=== PATIENT | female | born 1975 | race Caucasian/White ===

== ENCOUNTER 2020-07-08 12:52 | Outpatient (CLI) | payer OTHER, SELFPAY ==
--- NOTE | 2020-07-08 15:00 | NEURO_ITS ---
Impression: # Complains of paresthesia of both hands. # Mild right Carpal Tunnel Syndrome. # No ulnar neuropathy. # Normal needle/EMG exam. # Clinical correlation recommended. Nerve Conduction Studies Anti Sensory Summary Table Stim Site NR Peak (ms) P-T Amp (?V) Site1 Site2 Delta-P (ms) Dist (cm) Edin (m/s) Left Median Anti Sensory (2-3nd Digit) Wrist 2.5 24.5 Wrist 2-3nd Digit 2.5 14.0 56 Wrist 2.6 40.8 Wrist 2-3nd Digit 2.5 14.0 56 Right Median Anti Sensory (2-3nd Digit) Wrist 3.2 27.3 Wrist 2-3nd Digit 3.2 14.0 44 Wrist 3.1 24.4 Wrist 2-3nd Digit 3.2 14.0 44 Left Radial Anti Sensory (Base 1st Digit) Wrist 2.3 18.2 Wrist Base 1st Digit 2.3 0.0 Right Radial Anti Sensory (Base 1st Digit) Wrist 2.1 23.0 Wrist Base 1st Digit 2.1 0.0 Left Ulnar Anti Sensory (5th Digit) Wrist 2.3 51.2 Wrist 5th Digit 2.3 14.0 61 Right Ulnar Anti Sensory (5th Digit) Wrist 2.2 14.8 Wrist 5th Digit 2.2 14.0 64 Motor Summary Table Stim Site NR Onset (ms) O-P Amp (mV) Site1 Site2 Delta-0 (ms) Dist (cm) Edin (m/s) Left Median Motor (Abd Poll Brev) Wrist 2.7 2.7 Elbow Wrist 4.6 28.0 61 Elbow 7.3 2.7 Right Median Motor (Abd Poll Brev) Wrist 3.4 1.9 Elbow Wrist 4.6 27.0 59 Elbow 8.0 1.6 Left Ulnar Motor (Abd Dig Minimi) Wrist 2.3 6.4 A Elbow Wrist 4.6 28.0 61 A Elbow 6.9 4.8 Right Ulnar Motor (Abd Dig Minimi) Wrist 2.2 7.2 A Elbow Wrist 4.8 29.0 60 A Elbow 7.0 5.2 F Wave Studies NR F-Lat (ms) L-R F-Lat (ms) Left Median (Mrkrs) (Abd Poll Brev) 27.16 1.11 Right Median (Mrkrs) (Abd Poll Brev) 28.27 1.11 Left Ulnar (Mrkrs) (Abd Dig Min) 27.73 0.12 Right Ulnar (Mrkrs) (Abd Dig Min) 27.62 0.12 EMG Side Muscle Nerve Root Ins Act Fibs Amp Dur Recrt Comment Right 1stDorInt Ulnar C8-T1 Nml Nml Nml Nml Nml Right Ext Indicis Radial (Post Int) C7-8 Nml Nml Nml Nml Nml Right Ext Digitorum Radial (Post Int) C7-8 Nml Nml Nml Nml Nml Right BrachioRad Radial C5-6 Nml Nml Nml Nml Nml Right PronatorTeres Median C6-7 Nml Nml Nml Nml Nml Right Abd Poll Brev Median C8-T1 Nml Nml Nml Nml Nml Left 1stDorInt Ulnar C8-T1 Nml Nml Nml Nml Nml Left Ext Indicis Radial (Post Int) C7-8 Nml Nml Nml Nml Nml Left Ext Digitorum Radial (Post Int) C7-8 Nml Nml Nml Nml Nml Left BrachioRad Radial C5-6 Nml Nml Nml Nml Nml Left PronatorTeres Median C6-7 Nml Nml Nml Nml Nml Left Abd Poll Brev Median C8-T1 Nml Nml Nml Nml Nml MTDD
== END 2020-07-08 12:53 | disposition home or self-care (01) ==
PROVIDERS: Visit Provider Physician Assistant Surgical
DX: G56.01 Carpal tunnel syndrome, right upper limb (principal)
CPT/HCPCS: 95886; 95911

== ENCOUNTER 2022-07-01 15:10 | Day surgery (SDC) | payer OTHER, SELFPAY ==
[2022-07-01 14:03] VITALS: BP 148/100; PULSE 110; RESP 19; TEMP 36.6; O2SAT 98
--- NOTE | 2022-07-01 14:46 | ED.GENADULT ---
HPI - General Adult General Chief complaint: Unspecified Stated complaint: food bolus transfer remlap ed History of Present Illness HPI narrative: Patient is a 47-year-old female who presents ER as a transfer from [facility] for evaluation of a esophageal foreign body. Patient has history of esophageal strictures. She has been on the schedule to have esophageal dilation but has not made it in. She was eating some turkey this morning at 9 AM and became lodged. She has been unable to swallow since then. Cannot belch. She has discomfort in her chest and throat. Patient received glucagon without improvement. Related Data Home Medications Medication Instructions Recorded Confirmed amitriptyline 100 mg tablet 100 mg PO QHS 04/07/21 07/01/22 atorvastatin 40 mg tablet 40 mg PO DAILY 04/07/21 07/01/22 buspirone 30 mg tablet 30 mg PO DAILY 04/07/21 07/01/22 insulin glargine 100 unit/mL (3 70 unit subcut QPM 04/07/21 07/01/22 mL) subcutaneous pen (Basaglar KwikPen U-100 Insulin) levothyroxine 50 mcg capsule 50 mcg PO DAILY 04/07/21 07/01/22 liraglutide 0.6 mg/0.1 mL (18 mg/3 See Rx Instructions subcut .COMPLEX 04/07/21 07/01/22 mL) subcutaneous pen injector (Victoza 3-Richard) metoprolol succinate 50 mg 50 mg PO BID 04/07/21 07/01/22 tablet,extended release 24 hr sertraline 100 mg tablet (Zoloft) 100 mg PO DAILY 04/07/21 07/01/22 albuterol sulfate 90 mcg/actuation 2 inh inhalation DAILY 05/20/21 07/01/22 aerosol inhaler (Ventolin HFA) clonazepam 1 mg tablet 0.5 mg PO DAILY 05/20/21 07/01/22 ipratropium bromide 17 1 puff inhalation DAILY 05/20/21 07/01/22 mcg/actuation HFA aerosol inhaler (Atrovent HFA) Ozempic 1 mg BYMOUTH WEEKLY 03/29/22 07/01/22 losartan 100 1 tablet PO DAILY 03/29/22 07/01/22 mg-hydrochlorothiazide 25 mg tablet Allergies Allergy/AdvReac Type Severity Reaction Status Date / Time No Known Allergies Allergy Verified 07/01/22 15:15 Review of Systems Review of Systems: All systems reviewed & are unremarkable except as noted in HPI and below Constitutional: Constitutional: Denies chills and Denies fever(s) ENT: Reports dysphagia and Denies sore throat Cardiovascular: Cardiovascular: Denies chest pain and Denies radiating jaw, neck or arm pain Respiratory: Respiratory: Denies cough, Denies dyspnea and Denies wheezing Gastrointestinal: Gastrointestinal: Denies abdominal pain and Reports vomiting PMFSH Past Medical History Medical History (Updated 07/01/22 @ 15:43 by Isauro Chavez MD) Anxiety Asthma Diabetes insulin pump GERD (gastroesophageal reflux disease) Obese Thyroid disorder hypo Surgical History Surgical History (Updated 07/01/22 @ 18:34 by Mc Roberson MD) History of esophagogastroduodenoscopy (EGD) Family History Family History Father Alcohol abuse Diabetes mellitus Mother Cancer Depression Hypertension Sibling Depression Other Asthma Depression Social History Social History Smoking packs per day: 1 Smoking cigarettes per day: 20.0 Years smoked: 20 Smoking pack-years: 20.00 Smoking status: Former smoker Tobacco type: cigarettes Alcohol intake: never Substance use: never Substance use type: does not use Additional living arrangements comments: mom lives next door Gender identity (if verbalized by the patient): Female Spiritual care concerns: No Exam Narrative: GENERAL: Uncomfortable-appearing, well-nourished, and in no acute distress. HEAD: Normocephalic, atraumatic. EYES: PERRL and EOMI. ENT: Mucous membranes moist. CHEST: Clear to auscultation. No respiratory distress. HEART: Regular rate and rhythm. Normal peripheral pulses. ABDOMEN: Soft, nontender, nondistended. EXTREMITIES: Normal range of motion. No edema. SKIN: Warm, dry, no rash. NEURO: Alert and oriented
--- NOTE | 2022-07-01 15:31 | PM.HPGS ---
History of Present Illness History of Present Illness Consent: Risks, benefits, and alternatives have been discussed and questions answered. Patient agrees to proceed with procedure. Chief complaint: food bolus transfer gateway ed Narrative: Lili Bass is a 47 year old female Who presented to the emergency room because of inability to swallow. She was eating some turkey this morning when she relapsed after a few bites that would not go down. Has been unable to drink even water. She has been expect rating thick saliva. She did vomit a few times brought up some particles of food but is still unable to swallow. Feels as though there is a big air bubble in the middle of her chest. She has been having dysphagia for quite a while. She had seen a nurse practitioner in our office a while back and was scheduled for endoscopy with possible dilatation but she canceled several times because she was also supposed to be scheduled for colonoscopy and she was afraid of that procedure. Consequently, she has never had an EGD or esophageal dilatation. She does have a history of acid reflux. She is not currently on medicine for that. She is a diabetic, insulin dependent. Review of Systems Review of Systems: All systems reviewed & are unremarkable except as noted in HPI and below PMFSH Past Medical History Medical History Obese Family History Family History Father Alcohol abuse Diabetes mellitus Mother Cancer Depression Hypertension Sibling Depression Other Asthma Depression Social History Social History Smoking packs per day: 1 Smoking cigarettes per day: 20.0 Years smoked: 20 Smoking pack-years: 20.00 Smoking status: Former smoker Tobacco type: cigarettes Alcohol intake: never Substance use: never Substance use type: does not use Additional living arrangements comments: mom lives next door Gender identity (if verbalized by the patient): Female Spiritual care concerns: No Meds Home Medications and Allergies Home Medications Medication Instructions Recorded Confirmed Type amitriptyline 100 mg tablet 100 mg PO QHS 04/07/21 07/01/22 History atorvastatin 40 mg tablet 40 mg PO DAILY 04/07/21 07/01/22 History buspirone 30 mg tablet 30 mg PO DAILY 04/07/21 07/01/22 History insulin glargine 100 unit/mL (3 70 unit subcut QPM 04/07/21 07/01/22 History mL) subcutaneous pen (Basaglar KwikPen U-100 Insulin) levothyroxine 50 mcg capsule 50 mcg PO DAILY 04/07/21 07/01/22 History liraglutide 0.6 mg/0.1 mL (18 mg/3 See Rx Instructions subcut .COMPLEX 04/07/21 07/01/22 History mL) subcutaneous pen injector (Victoza 3-Richard) metoprolol succinate 50 mg 50 mg PO BID 04/07/21 07/01/22 History tablet,extended release 24 hr sertraline 100 mg tablet (Zoloft) 100 mg PO DAILY 04/07/21 07/01/22 History albuterol sulfate 90 mcg/actuation 2 inh inhalation DAILY 05/20/21 07/01/22 History aerosol inhaler (Ventolin HFA) clonazepam 1 mg tablet 0.5 mg PO DAILY 05/20/21 07/01/22 History ipratropium bromide 17 1 puff inhalation DAILY 05/20/21 07/01/22 History mcg/actuation HFA aerosol inhaler (Atrovent HFA) Ozempic 1 mg BYMOUTH WEEKLY 03/29/22 07/01/22 History losartan 100 1 tablet PO DAILY 03/29/22 07/01/22 History mg-hydrochlorothiazide 25 mg tablet Allergies Allergy/AdvReac Type Severity Reaction Status Date / Time No Known Allergies Allergy Verified 07/01/22 15:15 Vital Signs Vital Signs - 24 hr 07/01/22 14:03 Temperature 36.6 C Pulse Rate 110 H Respiratory Rate 19 Blood Pressure 148/100 H Pulse Oximetry 98 Oxygen Delivery Room Air Exam Const: General: alert Orientation/consciousness: patient oriented x3 Resp: Auscultation: clear to auscultation bilaterally Cardio: Rhythm: regular rhythm GI:
--- NOTE | 2022-07-01 15:41 | WPDANESEPPF ---
Anes - Initial Pre Proc Eval Procedure: Operation Date: 07/01/22 15:30 Proposed Procedures p Esophagogastroduodenoscopy EGD - Grey Rodriguez MD Date/Time: 07/01/22 15:41 Surgeon: Grey Rodriguez MD Pre Op Diagnosis: food bolus transfer gateway ed Patient Data Age: 47 Gender: F Height: 1.65 m Weight: 104 kg Last Vital Signs Temp 36.6 C 07/01/22 14:03 Pulse 110 H 07/01/22 14:03 Resp 19 07/01/22 14:03 BP 148/100 H 07/01/22 14:03 Pulse Ox 98 07/01/22 14:03 O2 Del Method Room Air 07/01/22 14:03 Allergies Allergy/AdvReac Type Severity Reaction Status Date / Time No Known Allergies Allergy Verified 07/01/22 15:15 Home Medications Medication Instructions Recorded Confirmed Type amitriptyline 100 mg tablet 100 mg PO QHS 04/07/21 07/01/22 History atorvastatin 40 mg tablet 40 mg PO DAILY 04/07/21 07/01/22 History buspirone 30 mg tablet 30 mg PO DAILY 04/07/21 07/01/22 History insulin glargine 100 unit/mL (3 70 unit subcut QPM 04/07/21 07/01/22 History mL) subcutaneous pen (Basaglar KwikPen U-100 Insulin) levothyroxine 50 mcg capsule 50 mcg PO DAILY 04/07/21 07/01/22 History liraglutide 0.6 mg/0.1 mL (18 mg/3 See Rx Instructions subcut .COMPLEX 04/07/21 07/01/22 History mL) subcutaneous pen injector (Victoza 3-Richard) metoprolol succinate 50 mg 50 mg PO BID 04/07/21 07/01/22 History tablet,extended release 24 hr sertraline 100 mg tablet (Zoloft) 100 mg PO DAILY 04/07/21 07/01/22 History albuterol sulfate 90 mcg/actuation 2 inh inhalation DAILY 05/20/21 07/01/22 History aerosol inhaler (Ventolin HFA) clonazepam 1 mg tablet 0.5 mg PO DAILY 05/20/21 07/01/22 History ipratropium bromide 17 1 puff inhalation DAILY 05/20/21 07/01/22 History mcg/actuation HFA aerosol inhaler (Atrovent HFA) Ozempic 1 mg BYMOUTH WEEKLY 03/29/22 07/01/22 History losartan 100 1 tablet PO DAILY 03/29/22 07/01/22 History mg-hydrochlorothiazide 25 mg tablet Patient hx anesthesia problems: none Family hx anesthesia problems: none Results Review: All pre-operative results and documents have been reviewed as part of the pre-operative evaluation. PMF Past Medical History Medical History (Updated 07/01/22 @ 15:43 by Isauro Chavez MD) Anxiety Asthma Diabetes insulin pump GERD (gastroesophageal reflux disease) Obese Thyroid disorder hypo Family History Family History Father Alcohol abuse Diabetes mellitus Mother Cancer Depression Hypertension Sibling Depression Other Asthma Depression Social History Social History Smoking packs per day: 1 Smoking cigarettes per day: 20.0 Years smoked: 20 Smoking pack-years: 20.00 Smoking status: Former smoker Tobacco type: cigarettes Alcohol intake: never Substance use: never Substance use type: does not use Additional living arrangements comments: mom lives next door Gender identity (if verbalized by the patient): Female Spiritual care concerns: No Anes - Eval Final PreProcedure Day of Procedure 07/01/22 15:41 Patient weight: obese Heart: regular rate and rhythm Lungs: clear to auscultation and normal air movement Airway: Mallampati scale class II Neurological: alert and oriented Last oral intake: >/= 8 hours ASA classification: III Emergent: yes Anesthetic plan: proceed Anesthesia type and monitoring: general GIVS and ETT Results Review: All pre-operative results and documents have been reviewed as part of the pre-operative evaluation. Informed Consent: The patient's anesthetic plan and its attendant risks and benefits were discussed with the patient/family/POA. Questions were solicited and answers provided to the satisfaction of the patient/family/POA.
[2022-07-01 15:50] VITALS: BP 113/74; PULSE 104; RESP 18; TEMP 36.7; O2SAT 98
[2022-07-01 16:00] VITALS: BP 117/56; PULSE 101; RESP 18; O2SAT 98
[2022-07-01 16:10] VITALS: BP 107/73; PULSE 99; RESP 22; O2SAT 98
[2022-07-01] MEDS: LACTATED RINGERS 1,000 ML 150 ML IV CONT (16:29)
--- NOTE | 2022-07-07 22:28 | ED.GENADULT ---
HPI - General Adult General Chief complaint: Unspecified Stated complaint: food bolus transfer gateway ed Related Data Home Medications Medication Instructions Recorded Confirmed amitriptyline 100 mg tablet 100 mg PO QHS 04/07/21 07/01/22 atorvastatin 40 mg tablet 40 mg PO DAILY 04/07/21 07/01/22 buspirone 30 mg tablet 30 mg PO DAILY 04/07/21 07/01/22 insulin glargine 100 unit/mL (3 70 unit subcut QPM 04/07/21 07/01/22 mL) subcutaneous pen (Basaglar KwikPen U-100 Insulin) levothyroxine 50 mcg capsule 50 mcg PO DAILY 04/07/21 07/01/22 liraglutide 0.6 mg/0.1 mL (18 mg/3 See Rx Instructions subcut .COMPLEX 04/07/21 07/01/22 mL) subcutaneous pen injector (Victoza 3-Richard) metoprolol succinate 50 mg 50 mg PO BID 04/07/21 07/01/22 tablet,extended release 24 hr sertraline 100 mg tablet (Zoloft) 100 mg PO DAILY 04/07/21 07/01/22 albuterol sulfate 90 mcg/actuation 2 inh inhalation DAILY 05/20/21 07/01/22 aerosol inhaler (Ventolin HFA) clonazepam 1 mg tablet 0.5 mg PO DAILY 05/20/21 07/01/22 ipratropium bromide 17 1 puff inhalation DAILY 05/20/21 07/01/22 mcg/actuation HFA aerosol inhaler (Atrovent HFA) Ozempic 1 mg BYMOUTH WEEKLY 03/29/22 07/01/22 losartan 100 1 tablet PO DAILY 03/29/22 07/01/22 mg-hydrochlorothiazide 25 mg tablet Allergies Allergy/AdvReac Type Severity Reaction Status Date / Time No Known Allergies Allergy Verified 07/01/22 15:15 [facility] Past Medical History Medical History (Updated 07/01/22 @ 15:43 by Isauro Chavez MD) Anxiety Asthma Diabetes insulin pump GERD (gastroesophageal reflux disease) Obese Thyroid disorder hypo Surgical History Surgical History (Updated 07/01/22 @ 18:34 by Mc Roberson MD) History of esophagogastroduodenoscopy (EGD) Family History Family History Father Alcohol abuse Diabetes mellitus Mother Cancer Depression Hypertension Sibling Depression Other Asthma Depression Social History Social History Smoking packs per day: 1 Smoking cigarettes per day: 20.0 Years smoked: 20 Smoking pack-years: 20.00 Smoking status: Former smoker Tobacco type: cigarettes Alcohol intake: never Substance use: never Substance use type: does not use Additional living arrangements comments: mom lives next door Gender identity (if verbalized by the patient): Female Spiritual care concerns: No Course Vital Signs Vital signs: Vital Signs Temperature 97.9 F 07/01/22 14:03 Pulse Rate 110 H 07/01/22 14:03 Respiratory Rate 19 07/01/22 14:03 Blood Pressure 148/100 H 07/01/22 14:03 Pulse Oximetry 98 07/01/22 14:03 Oxygen Delivery Room Air 07/01/22 14:03 Temperature 98.0 F 07/01/22 15:50 Pulse Rate 99 07/01/22 16:10 Respiratory Rate 22 H 07/01/22 16:10 Blood Pressure 107/73 07/01/22 16:10 Pulse Oximetry 98 07/01/22 16:10 Oxygen Delivery Room Air 07/01/22 16:10 Medical Decision Making Vital Signs Vital Signs: Vital Signs Temperature 97.9 F 07/01/22 14:03 Pulse Rate 110 H 07/01/22 14:03 Respiratory Rate 19 07/01/22 14:03 Blood Pressure 148/100 H 07/01/22 14:03 Pulse Oximetry 98 07/01/22 14:03 Oxygen Delivery Room Air 07/01/22 14:03 Temperature 98.0 F 07/01/22 15:50 Pulse Rate 99 07/01/22 16:10 Respiratory Rate 22 H 07/01/22 16:10 Blood Pressure 107/73 07/01/22 16:10 Pulse Oximetry 98 07/01/22 16:10 Oxygen Delivery Room Air 07/01/22 16:10 Discharge Plan Discharge Patient Disposition: Home, Self-Care Follow-up/Referrals: Darek,Pedrito Abraham APRN [Primary Care Provider] - Discharge Medications: New pantoprazole 40 mg tablet,delayed release (DR/EC) 40 mg PO QAM Qty: 30 1RF Continued metoprolol succinate 50 mg tablet extended release 24 hr 50 mg PO BID levothyroxine 50 mcg capsule 50 mc
== END 2022-07-01 16:30 | disposition home or self-care (01) ==
PROVIDERS: PCP Nurse Practitioner; Visit Provider Internal Medicine Gastroenterology
PROC: 0DJ08ZZ Inspection of Upper Intestinal Tract, Via Natural or Artificial Opening Endoscopic (ICD-10-PCS; CPT 43235; principal; 2022-07-01 15:30)
DX: T18.128A Food in esophagus causing other injury, initial encounter (principal); K21.00 Gastro-esophageal reflux disease with esophagitis, without bleeding; K31.84 Gastroparesis; K22.2 Esophageal obstruction; E11.9 Type 2 diabetes mellitus without complications; K21.9 Gastro-esophageal reflux disease without esophagitis; J45.909 Unspecified asthma, uncomplicated; F41.9 Anxiety disorder, unspecified; E03.9 Hypothyroidism, unspecified; Z96.41 Presence of insulin pump (external) (internal); Z79.4 Long term (current) use of insulin; Z79.899 Other long term (current) drug therapy; Z79.51 Long term (current) use of inhaled steroids; Z87.891 Personal history of nicotine dependence
CPT/HCPCS: 43239; 88305; 88313; 99285; J2001; J2704; J7120

== ENCOUNTER 2022-08-04 01:20 | Day surgery (SDC) | payer OTHER, SELFPAY ==
[2022-07-28 09:47] VITALS: BMI 40.3
--- NOTE | 2022-08-03 14:10 | PM.HPGS ---
History of Present Illness History of Present Illness Consent: Risks, benefits, and alternatives have been discussed and questions answered. Patient agrees to proceed with procedure. Chief complaint: esophageal stricture Narrative: Lili Bass is a 47 year old female Who had a food impaction of the esophagus treated about 4 weeks ago. A piece of chicken had been lodged for several hours. We were able to successfully remove it by advancing into the stomach. Severe esophagitis and stricture was noted at that time. She returns now for further treatment. Review of Systems Review of Systems: All systems reviewed & are unremarkable except as noted in HPI and below PMFSH Past Medical History Medical History Anxiety Asthma Diabetes insulin pump GERD (gastroesophageal reflux disease) Obese Thyroid disorder hypo Surgical History Surgical History History of esophagogastroduodenoscopy (EGD) Family History Family History Father Alcohol abuse Diabetes mellitus Mother Cancer Depression Hypertension Sibling Depression Other Asthma Depression Social History Social History Smoking packs per day: 1 Smoking cigarettes per day: 20.0 Years smoked: 20 Smoking pack-years: 20.00 Smoking status: Former smoker Tobacco type: cigarettes Alcohol intake: never Substance use: never Substance use type: does not use Living arrangements: alone Additional living arrangements comments: mom lives next door Gender identity (if verbalized by the patient): Female Spiritual care concerns: No Meds Home Medications and Allergies Home Medications Medication Instructions Recorded Confirmed Type amitriptyline 100 mg tablet 100 mg PO QHS 04/07/21 07/28/22 History atorvastatin 40 mg tablet 40 mg PO DAILY 04/07/21 07/28/22 History buspirone 30 mg tablet 30 mg PO DAILY 04/07/21 07/28/22 History insulin glargine 100 unit/mL (3 50 unit subcut QPM 04/07/21 07/28/22 History mL) subcutaneous pen (Basaglar KwikPen U-100 Insulin) levothyroxine 50 mcg capsule 50 mcg PO DAILY 04/07/21 07/28/22 History metoprolol succinate 50 mg 50 mg PO BID 04/07/21 07/28/22 History tablet,extended release 24 hr sertraline 100 mg tablet (Zoloft) 100 mg PO DAILY 04/07/21 07/28/22 History albuterol sulfate 90 mcg/actuation 2 inh inhalation DAILY 05/20/21 07/28/22 History aerosol inhaler (Ventolin HFA) clonazepam 1 mg tablet 0.5 mg PO DAILY 05/20/21 07/28/22 History ipratropium bromide 17 1 puff inhalation DAILY PRN 05/20/21 07/28/22 History mcg/actuation HFA aerosol inhaler Wheezing (Atrovent HFA) Ozempic 2 mg BYMOUTH WEEKLY 03/29/22 07/28/22 History pantoprazole 40 mg tablet,delayed 40 mg PO QAM #30 tabs 07/01/22 07/28/22 Rx release insulin lispro 100 unit/mL See Rx Instructions .Route .COMPLEX 07/28/22 07/28/22 History subcutaneous cartridge (Humalog U-100 Insulin) metformin 1,000 mg tablet 1,000 mg PO BID 07/28/22 07/28/22 History quetiapine 25 mg tablet (Seroquel) 25 mg PO HS 07/28/22 07/28/22 History Allergies Allergy/AdvReac Type Severity Reaction Status Date / Time No Known Allergies Allergy Verified 08/04/22 09:07 Exam Const: General: alert Orientation/consciousness: patient oriented x3 Resp: Auscultation: clear to auscultation bilaterally Cardio: Rhythm: regular rhythm GI: GI Palp: Yes Soft to palpation and No Tenderness to palpation present (GI) Neuro: General: patient oriented x3 Assessment and Plan Assessment and plan (1) Dysphagia: Code(s): R13.10 - Dysphagia, unspecified Status: Acute Assessment and Plan: EGD with possible biopsy or dilatation or cautery.
[2022-08-04 09:10] VITALS: BP 106/70; PULSE 93; RESP 20; TEMP 36.4; O2SAT 95
[2022-08-04] MEDS: LACTATED RINGERS 1,000 ML 150 ML IV CONT (09:21)
[2022-08-04 09:29] LABS: Glucose Point of Care 158 mg/dl (65-105)
--- NOTE | 2022-08-04 09:31 | WPDANESEPPF ---
Anes - Initial Pre Proc Eval Procedure: Operation Date: 08/04/22 10:30 Proposed Procedures p Esophagogastroduodenoscopy EGD - Grey Rodriguez MD Date/Time: 08/04/22 09:31 Surgeon: Grey Rodriguez MD Pre Op Diagnosis: esophageal stricture Patient Data Age: 47 Gender: F Height: 1.65 m Weight: 109.4 kg Last Vital Signs Temp 36.4 C L 08/04/22 09:10 Pulse 93 08/04/22 09:10 Resp 20 08/04/22 09:10 BP 106/70 08/04/22 09:10 Pulse Ox 95 08/04/22 09:10 O2 Del Method Room Air 08/04/22 09:10 Allergies Allergy/AdvReac Type Severity Reaction Status Date / Time No Known Allergies Allergy Verified 08/04/22 09:07 Home Medications Medication Instructions Recorded Confirmed Type amitriptyline 100 mg tablet 100 mg PO QHS 04/07/21 07/28/22 History atorvastatin 40 mg tablet 40 mg PO DAILY 04/07/21 07/28/22 History buspirone 30 mg tablet 30 mg PO DAILY 04/07/21 07/28/22 History insulin glargine 100 unit/mL (3 50 unit subcut QPM 04/07/21 07/28/22 History mL) subcutaneous pen (Basaglar KwikPen U-100 Insulin) levothyroxine 50 mcg capsule 50 mcg PO DAILY 04/07/21 07/28/22 History metoprolol succinate 50 mg 50 mg PO BID 04/07/21 07/28/22 History tablet,extended release 24 hr sertraline 100 mg tablet (Zoloft) 100 mg PO DAILY 04/07/21 07/28/22 History albuterol sulfate 90 mcg/actuation 2 inh inhalation DAILY 05/20/21 07/28/22 History aerosol inhaler (Ventolin HFA) clonazepam 1 mg tablet 0.5 mg PO DAILY 05/20/21 07/28/22 History ipratropium bromide 17 1 puff inhalation DAILY PRN 05/20/21 07/28/22 History mcg/actuation HFA aerosol inhaler Wheezing (Atrovent HFA) Ozempic 2 mg BYMOUTH WEEKLY 03/29/22 07/28/22 History pantoprazole 40 mg tablet,delayed 40 mg PO QAM #30 tabs 07/01/22 07/28/22 Rx release insulin lispro 100 unit/mL See Rx Instructions .Route .COMPLEX 07/28/22 07/28/22 History subcutaneous cartridge (Humalog U-100 Insulin) metformin 1,000 mg tablet 1,000 mg PO BID 07/28/22 07/28/22 History quetiapine 25 mg tablet (Seroquel) 25 mg PO HS 07/28/22 07/28/22 History Laboratory Tests 08/04/22 09:20 POC Capillary Glucose 158 mg/dl H mg/dl (65-105) Patient hx anesthesia problems: none Family hx anesthesia problems: none Results Review: All pre-operative results and documents have been reviewed as part of the pre-operative evaluation. [facility] Past Medical History Medical History (Updated 07/01/22 @ 15:43 by Isauro Chavez MD) Anxiety Asthma Diabetes insulin pump GERD (gastroesophageal reflux disease) Obese Thyroid disorder hypo Surgical History Surgical History (Updated 07/01/22 @ 18:34 by Mc Roberson MD) History of esophagogastroduodenoscopy (EGD) Family History Family History Father Alcohol abuse Diabetes mellitus Mother Cancer Depression Hypertension Sibling Depression Other Asthma Depression Social History Social History Smoking packs per day: 1 Smoking cigarettes per day: 20.0 Years smoked: 20 Smoking pack-years: 20.00 Smoking status: Former smoker Tobacco type: cigarettes Alcohol intake: never Substance use: never Substance use type: does not use Living arrangements: alone Additional living arrangements comments: mom lives next door Gender identity (if verbalized by the patient): Female Spiritual care concerns: No Anes - Eval Final PreProcedure Day of Procedure 08/04/22 09:31 Patient weight: morbidly obese Heart: regular rate and rhythm Lungs: clear to auscultation Airway: Mallampati scale class II Neurological: alert and oriented Last oral intake: >/= 8 hours ASA classification: III Emergent: no Anesthetic plan: proceed Anesthesia type and monitoring: general GIVS and standard monitoring Results Review: All pre-operative results and documents have been
[2022-08-04] MEDS: BENZOCAINE (*SP) 60 ML SPRAY CAN (HURRICAINE) 1 SPRAY MUCOUS MEM (10:27)
[2022-08-04 10:38] VITALS: BP 89/53; PULSE 86; RESP 18; O2SAT 97
[2022-08-04 10:48] VITALS: BP 99/64; PULSE 81; RESP 20; O2SAT 99
[2022-08-04 10:50] LABS: Glucose Point of Care 136 mg/dl (65-105)
[2022-08-04 10:58] VITALS: BP 107/74; PULSE 81; RESP 20; O2SAT 99
== END 2022-08-04 11:07 | disposition home or self-care (01) ==
PROVIDERS: PCP Internal Medicine; Visit Provider Internal Medicine Gastroenterology
PROC: 0DJ08ZZ Inspection of Upper Intestinal Tract, Via Natural or Artificial Opening Endoscopic (ICD-10-PCS; CPT 43235; principal; 2022-08-04 10:30)
DX: K22.2 Esophageal obstruction (principal); K31.84 Gastroparesis; K21.9 Gastro-esophageal reflux disease without esophagitis; E11.9 Type 2 diabetes mellitus without complications; E03.9 Hypothyroidism, unspecified; J45.909 Unspecified asthma, uncomplicated; F41.9 Anxiety disorder, unspecified; Z79.4 Long term (current) use of insulin; Z79.51 Long term (current) use of inhaled steroids; Z79.84 Long term (current) use of oral hypoglycemic drugs; Z96.41 Presence of insulin pump (external) (internal); Z87.891 Personal history of nicotine dependence; E66.01 Morbid (severe) obesity due to excess calories; Z68.41 Body mass index [BMI] 40.0-44.9, adult
CPT/HCPCS: 43249; 82948; 88305; C1726; J2704; J7120

== ENCOUNTER 2023-03-14 08:49 | Outpatient (CLI) | payer OTHER, SELFPAY ==
--- NOTE | ~2023-03-14 | XR_ITS ---
EXAMINATION: XR barium swallow modified DATE: 03/14/2023 09:45 INDICATION: Dysphagia, unspecified. TECHNIQUE: The patient was given barium-containing material of multiple consistencies to swallow by t david speech pathologist while I performed fluoroscopy. Fluoroscopy exposure time was 0.7 minutes. The n umber of fluoroscopy images saved to the PACS was 1. Dose-area product was 0.579 Gy-cm^2. FINDINGS: The oral stage, pharyngeal stage, and cervical/esophageal stage of the swallow are normal. IMPRESSION: 1. Normal modified barium swallow. 2. Please refer to the speech therapy report for recommendations. Reviewed, dictated and finalized at location A.
--- NOTE | 2023-03-14 10:42 | REHSTMBS ---
Assessment and note entered by Shelly Cali, [employer] Modified Barium Swallow Evaluation Feeding Type Recommended Oral Food Consistency Regular, Level 7 Liquid Consistency Thin (0) ST Clinical Summary MODIFIED BARIUM SWALLOW STUDY This patient came in for an outpatient MBS evaluation and cited an incident where she had gotten wallisian fries or turkey stuck in her upper esophagus. Patient reports that the blockage caused severe pain and she attempted to dislodge the bolus herself by vomiting but was unsuccessful. She went to the ER where the bolus was removed by doctor without dilation due to her irritated esophagus. Patient says she occasionally still experiences some blockages, but currently sees Dr. Rodriguez who has put her on protonics which helps. During the MBS study, patient was given uncontrolled liquid via cup and straw, pureed consistency via spoon, and solids via hand. Patient's swallowing was within normal limits. No speech services recommended at this time. Patient is referred back to her physician for further assessment of her complaints. Thank you for this referral.
== END 2023-03-14 08:50 | disposition home or self-care (01) ==
LOC: ANHIMG 08:56
PROVIDERS: PCP Internal Medicine; Visit Provider Internal Medicine Gastroenterology
DX: R13.10 Dysphagia, unspecified (principal)
CPT/HCPCS: 92611

== ENCOUNTER 2023-04-04 01:39 | Day surgery (SDC) | payer OTHER, SELFPAY ==
[2023-03-23 13:40] VITALS: BMI 36.6
--- NOTE | 2023-04-03 15:32 | PM.HPGS ---
History of Present Illness History of Present Illness Consent: Risks, benefits, and alternatives have been discussed and questions answered. Patient agrees to proceed with procedure. Chief complaint: neoplasm screening, dysphagia Narrative: Lili Bass is a 47 year old female who was found have a stricture of the esophagus when she presented to the hospital with a food impaction last June. She had severe esophagitis and stricture. She returned a few weeks later for endoscopy and was dilated up to 18 mm. Biopsies were taken to rule out Blankenship's. Those were negative she did have up to 20 eosinophils per HPF in biopsies of the distal esophagus only. she is begin have difficulty swallowing again, mostly meat and bread. Protonix has done wonders however for heartburn. She is due for colon cancer screening. Review of Systems Review of Systems: All systems reviewed & are unremarkable except as noted in HPI and below PMFSH Past Medical History Medical History Anxiety Asthma Diabetes insulin pump GERD (gastroesophageal reflux disease) Obese Thyroid disorder hypo Surgical History Surgical History History of esophagogastroduodenoscopy (EGD) Family History Family History Father Alcohol abuse Diabetes mellitus Mother Cancer Depression Hypertension Sibling Depression Other Asthma Depression Social History Social History Smoking packs per day: 1 Smoking cigarettes per day: 20.0 Years smoked: 20 Smoking pack-years: 20.00 Smoking status: Former smoker Tobacco type: cigarettes Alcohol intake: never Substance use: never Substance use type: does not use Living arrangements: with family Additional living arrangements comments: mom lives next door Gender identity (if verbalized by the patient): Female Spiritual care concerns: No Meds Home Medications and Allergies Home Medications Medication Instructions Recorded Confirmed Type amitriptyline 100 mg tablet 100 mg PO QHS 04/07/21 03/23/23 History atorvastatin 40 mg tablet 40 mg PO DAILY 04/07/21 03/23/23 History buspirone 30 mg tablet 30 mg PO DAILY 04/07/21 03/23/23 History insulin glargine 100 unit/mL (3 50 unit subcut QPM 04/07/21 03/23/23 History mL) subcutaneous pen (Basaglar KwikPen U-100 Insulin) levothyroxine 50 mcg capsule 50 mcg PO DAILY 04/07/21 03/23/23 History metoprolol succinate 50 mg 50 mg PO BID 04/07/21 03/23/23 History tablet,extended release 24 hr sertraline 100 mg tablet (Zoloft) 100 mg PO DAILY 04/07/21 03/23/23 History albuterol sulfate 90 mcg/actuation 2 inh inhalation DAILY 05/20/21 03/23/23 History aerosol inhaler (Ventolin HFA) clonazepam 1 mg tablet 0.5 mg PO DAILY 05/20/21 03/23/23 History ipratropium bromide 17 1 puff inhalation DAILY PRN 05/20/21 03/23/23 History mcg/actuation HFA aerosol inhaler Wheezing (Atrovent HFA) Ozempic 2 mg BYMOUTH WEEKLY 03/29/22 03/23/23 History insulin lispro 100 unit/mL See Rx Instructions .Route .COMPLEX 07/28/22 03/23/23 History subcutaneous cartridge (Humalog U-100 Insulin) metformin 1,000 mg tablet 1,000 mg PO BID 07/28/22 03/23/23 History quetiapine 25 mg tablet (Seroquel) 25 mg PO HS 07/28/22 03/23/23 History pantoprazole 40 mg tablet,delayed 40 mg PO QAM #30 tabs 03/15/23 03/23/23 Rx release Allergies Allergy/AdvReac Type Severity Reaction Status Date / Time No Known Allergies Allergy Verified 04/04/23 07:40 Exam Const: General: alert Orientation/consciousness: patient oriented x3 Resp: Auscultation: clear to auscultation bilaterally Cardio: Rhythm: regular rhythm GI: GI Palp: Yes Soft to palpation and No Tenderness to palpation present (GI) Neuro: General: patient oriented x3 Assessment a
[2023-04-04 07:44] VITALS: BP 110/77; PULSE 91; RESP 18; TEMP 36; O2SAT 99
[2023-04-04] MEDS: LACTATED RINGERS 1,000 ML 150 ML IV CONT (07:54)
--- NOTE | 2023-04-04 08:16 | WPDANESEPPF ---
Anes - Initial Pre Proc Eval Procedure: Operation Date: 04/04/23 09:00 Proposed Procedures p Esophagogastroduodenoscopy & Screening Colonoscopy - Grey Rodriguez MD Date/Time: 04/04/23 08:16 Surgeon: Grey Rodriguez MD Pre Op Diagnosis: neoplasm screening, dysphagia Patient Data Age: 47 Gender: F Height: 1.65 m Weight: 92.9 kg Last Vital Signs Temp 36.0 C L 04/04/23 07:44 Pulse 91 04/04/23 07:44 Resp 18 04/04/23 07:44 BP 110/77 04/04/23 07:44 Pulse Ox 99 04/04/23 07:44 O2 Del Method Room Air 04/04/23 07:44 Allergies Allergy/AdvReac Type Severity Reaction Status Date / Time No Known Allergies Allergy Verified 04/04/23 07:40 Home Medications Medication Instructions Recorded Confirmed Type amitriptyline 100 mg tablet 100 mg PO QHS 04/07/21 03/23/23 History atorvastatin 40 mg tablet 40 mg PO DAILY 04/07/21 03/23/23 History buspirone 30 mg tablet 30 mg PO DAILY 04/07/21 03/23/23 History insulin glargine 100 unit/mL (3 50 unit subcut QPM 04/07/21 03/23/23 History mL) subcutaneous pen (Basaglar KwikPen U-100 Insulin) levothyroxine 50 mcg capsule 50 mcg PO DAILY 04/07/21 03/23/23 History metoprolol succinate 50 mg 50 mg PO BID 04/07/21 03/23/23 History tablet,extended release 24 hr sertraline 100 mg tablet (Zoloft) 100 mg PO DAILY 04/07/21 03/23/23 History albuterol sulfate 90 mcg/actuation 2 inh inhalation DAILY 05/20/21 03/23/23 History aerosol inhaler (Ventolin HFA) clonazepam 1 mg tablet 0.5 mg PO DAILY 05/20/21 03/23/23 History ipratropium bromide 17 1 puff inhalation DAILY PRN 05/20/21 03/23/23 History mcg/actuation HFA aerosol inhaler Wheezing (Atrovent HFA) Ozempic 2 mg BYMOUTH WEEKLY 03/29/22 03/23/23 History insulin lispro 100 unit/mL See Rx Instructions .Route .COMPLEX 07/28/22 03/23/23 History subcutaneous cartridge (Humalog U-100 Insulin) metformin 1,000 mg tablet 1,000 mg PO BID 07/28/22 03/23/23 History quetiapine 25 mg tablet (Seroquel) 25 mg PO HS 07/28/22 03/23/23 History pantoprazole 40 mg tablet,delayed 40 mg PO QAM #30 tabs 03/15/23 03/23/23 Rx release Patient hx anesthesia problems: none Family hx anesthesia problems: none Results Review: All pre-operative results and documents have been reviewed as part of the pre-operative evaluation. PMFSH Past Medical History Medical History Anxiety Asthma Diabetes insulin pump GERD (gastroesophageal reflux disease) Obese Thyroid disorder hypo Surgical History Surgical History History of esophagogastroduodenoscopy (EGD) Family History Family History Father Alcohol abuse Diabetes mellitus Mother Cancer Depression Hypertension Sibling Depression Other Asthma Depression Social History Social History Smoking packs per day: 1 Smoking cigarettes per day: 20.0 Years smoked: 20 Smoking pack-years: 20.00 Smoking status: Former smoker Tobacco type: cigarettes Alcohol intake: never Substance use: never Substance use type: does not use Living arrangements: with family Additional living arrangements comments: mom lives next door Gender identity (if verbalized by the patient): Female Spiritual care concerns: No Anes - Eval Final PreProcedure Day of Procedure 04/04/23 08:16 Patient weight: obese Heart: regular rate and rhythm Lungs: clear to auscultation Airway: Mallampati scale class II Neurological: alert and oriented Last oral intake: >/= 8 hours ASA classification: III Emergent: no Anesthetic plan: proceed Anesthesia type and monitoring: general GIVS and standard monitoring Results Review: All pre-operative results and documents have been reviewed as part of the pre-operative evaluation. Informed Consent: The
[2023-04-04 08:44] LABS: Glucose Point of Care 152 mg/dl (65-105)
--- NOTE | 2023-04-04 08:47 | SUR.OPER ---
EGD ended at 842. Colonoscopy began at 847.
[2023-04-04 09:01] VITALS: BP 110/67; PULSE 87; RESP 20; O2SAT 100
[2023-04-04 09:11] VITALS: BP 99/62; PULSE 79; RESP 18; O2SAT 100
[2023-04-04 09:16] LABS: Glucose Point of Care 123 mg/dl (65-105)
[2023-04-04 09:21] VITALS: BP 91/67; PULSE 81; RESP 19; O2SAT 100
== END 2023-04-04 11:21 | disposition home or self-care (01) ==
PROVIDERS: PCP Internal Medicine; Visit Provider Internal Medicine Gastroenterology
PROC: 0DJ08ZZ Inspection of Upper Intestinal Tract, Via Natural or Artificial Opening Endoscopic (ICD-10-PCS; CPT 43235; principal; 2023-04-04 09:00)
DX: Z12.11 Encounter for screening for malignant neoplasm of colon (principal); K64.8 Other hemorrhoids; K22.2 Esophageal obstruction; K21.9 Gastro-esophageal reflux disease without esophagitis; J45.909 Unspecified asthma, uncomplicated; E03.9 Hypothyroidism, unspecified; F41.9 Anxiety disorder, unspecified; Z96.41 Presence of insulin pump (external) (internal); Z79.4 Long term (current) use of insulin; Z79.51 Long term (current) use of inhaled steroids; Z79.84 Long term (current) use of oral hypoglycemic drugs; Z87.891 Personal history of nicotine dependence; E66.9 Obesity, unspecified; Z68.34 Body mass index [BMI] 34.0-34.9, adult
CPT/HCPCS: 45378; 43249; 82948; C1726; J2704; J7120